=== PATIENT | female | born 1955 | race Caucasian/White ===

== ENCOUNTER 2018-11-17 01:16 | Emergency (ER) | payer BC ==
[2018-11-17] MEDS ORDERED: LIDOCAINE 1% INJ-PF (10 MG/ML) 30 ML SDV INJ ONE (03:11)
--- NOTE | 2018-11-17 03:53 | RADIOLOGY REPORT (SQ) ---
EXAM DESCRIPTION: CT CERVICAL SPINE WITHOUT IV CONTRAST, CT HEAD WITHOUT IV CONTRAST COMPLETED DATE/TME: 11/17/2018 03:11 CLINICAL HISTORY: 63 years, Female, fall, etoh COMPARISON: None Available. Technique: Contiguous axial images of the brain were obtained without the administration of intravenous contrast. Coronal and sagittal reformats obtained and reviewed. This exam was performed according to our departmental dose-optimization program which includes use of Automated Exposure Control, adjustment of the mA and/or kV according to patient size and/or use of iterative reconstruction technique. Findings: Brain: No hemorrhage. No territorial infarct. No mass effect. No herniation. Ventricles: Within normal limits for patient's age. Bones: No acute osseous abnormality. Paranasal sinuses: Unremarkable. Mastoid air cells: Unremarkable. Soft tissues: Soft tissue injury to the right parietal scalp. IMPRESSION: No acute intracranial abnormalities. EXAM DESCRIPTION: CT cervical spine without contrast CLINICAL HISTORY: 63 years Female fall, etoh COMPARISON: None TECHNIQUE: Multiplanar imaging through the cervical spine without contrast. This exam was performed according to our departmental dose-optimization program, which includes automated exposure control, adjustment of the mA and/or kV according to patient size and/or use of iterative reconstruction technique. FINDINGS: No fracture. No subluxation. Disc space narrowing and marginal osteophytes C4-C5, C5-C6 and C6-C7. Soft tissues are unremarkable. Visualized lung is clear. IMPRESSION: No acute abnormality. No fracture or subluxation.
--- NOTE | 2018-11-17 04:42 | ER Document Report ---
ED Fall - General Chief Complaint: Fall Injury Stated Complaint: FALL,HEAD INJURY Time Seen by Provider: 11/17/18 02:39 Notes: Patient is a 63-year-old female presents to the emergency department after a trip and fall. Patient states she had been partaking in alcoholic beverages this evening. States that is abnormal for her and she feels as though she tripped on the carpet. Patient's significant other is in the room agreeing with patient's story. Patient is denying any lightheadedness, dizziness, weakness prior to or after the fall. Patient states she does take hydroxyurea for elevated her platelet count. States she also takes daily baby aspirin. Patient's only complaint is a laceration to the right side of her head. She is denying any loss of consciousness which patient significant other agrees with. Denying any vomiting or headache. TRAVEL OUTSIDE OF THE [place] IN LAST 30 DAYS: No - Related data Allergies/Adverse Reactions: No Known Allergies Allergy (Unverified 11/17/18 01:20) Past Medical History - General Information source: Patient, Relative - Social History Smoking Status: Never Smoker Chew tobacco use (# tins/day): No Frequency of alcohol use: None Drug Abuse: None Family History: Reviewed & Not Pertinent Patient has suicidal ideation: No Patient has homicidal ideation: No Renal/ Medical History: Denies: Hx Peritoneal Dialysis Review of Systems - Review of Systems Constitutional: No symptoms reported EENT: See HPI Cardiovascular: No symptoms reported Respiratory: No symptoms reported Gastrointestinal: No symptoms reported Genitourinary: No symptoms reported Female Genitourinary: No symptoms reported Musculoskeletal: See HPI Skin: See HPI Hematologic/Lymphatic: See HPI Neurological/Psychological: See HPI Physical Exam - Vital signs Vitals: Temp Pulse Resp BP Pulse Ox 97.5 F 73 18 115/82 97 11/17/18 01:39 11/17/18 01:39 11/17/18 01:39 11/17/18 01:39 11/17/18 01:39 - Notes Notes: GENERAL: Alert, interacts well. No acute distress. HEAD: Normocephalic, 2 cm laceration noted right parietal region. EYES: Pupils equal, round, and reactive to light. Extraocular movements intact. ENT: Oral mucosa moist, tongue midline. Nares patent, no nasal septal hematoma, TM's intact, no hemotympanum noted bilaterally. NECK: Full range of motion. Supple. Trachea midline. LUNGS: Clear to auscultation bilaterally, no wheezes, rales, or rhonchi. No respiratory distress. HEART: Regular rate and rhythm. No murmur ABDOMEN: Soft, non-tender. Non-distended. Bowel sounds present in all 4 quadrants. EXTREMITIES: Moves all 4 extremities spontaneously. No edema, normal radial and dorsalis pedis pulses bilaterally. No cyanosis. BACK: no cervical, thoracic, lumbar midline tenderness. No saddle anesthesia, normal distal neurovascular exam. NEUROLOGICAL: Alert and oriented x3. Normal speech. cranial nerves II through XII grossly intact. PSYCH: Normal affect, normal mood. SKIN: Warm, dry, normal turgor. No rashes or lesions noted. Course - Re-evaluation Re-evalutation: 11/17/18 04:40 Due to patient admitting her partaking in alcoholic beverages this evening CT head and neck were ordered. Both head and neck CT showed no signs of intracra nial bleeding or fractures. Patient's laceration was repaired, see procedure note for details. Patient tolerated well. Patient stable for discharge. - Vital Signs Vital signs: Temp Pulse Resp BP Pulse Ox 97.5 F 73 18 115/82 97 11/17/18 01:39 11/17/18 01:39 11/17/18 01:39 11/17/18 01:39 11/17/18 01:39 Procedures - Laceration/Wound Repair Scalp Wound length (cm): 2 Wound's Depth, Shape: Superficial Laceration pre-procedure: Sterile PPE donned, Betadine prep applied, Sterile drapes applied, Shur-Clens applied Anesthetic type: 1% Lidocaine Volume Anesthetic (mLs): 5 Wound explored: Clean Irrigated w/ Saline (mLs): 300 Wound Debrided: Minimal Wound Repaired With: Sutures Suture Size/Type: Vicryl, 4:0 Number of Sutures: 5 Post-procedure wound care: Sterile dressing applied Post-procedure NV exam normal: Yes Adult Head Front/Back picture: 1 - Laceration Discharge - Discharge Clinical Impression: Head injury Qualifiers: Encounter type: initial encounter Qualified Code(s): S09.90XA - Unspecified injury of head, initial encounter Scalp laceration Qualifiers: Encounter type: initial encounter Qualified Code(s): S01.01XA - Laceration without foreign body of scalp, initial encounter Condition: Stable Disposition: HOME, SELF-CARE Instructions: Laceration Care (OM), Tetanus Immunization Given (OM), Soap Cleansing (COUNT INCLUDES THE [facility]) Additional Instructions: As we discussed you have been seen and treated in the emergency department after a minor head injury and sustaining laceration to your scalp. Your laceration was repaired with absorbable sutures. This is they will absorb in the next 7-10 days. The next 24 hours do not get your laceration wet. After that you can clean it like normal just do not submerge it. Please also be careful brushing her hair. Please make sure you follow-up with your primary care provider in the next 24-48 hours and return to the emergency room for any other concerning symptoms.
[2018-11-17] MEDS ORDERED: DIPH/PERTUSS(ACELL)/TETANUS VAC/PF 0.5 ML SYR (>=10YO) IM ONE (04:43)
[2018-11-17 05:04] VITALS: BP 108/73
== END 2018-11-17 04:59 | disposition home or self-care (01) ==
LOC: ER 01:16
DX: S01.01XA Laceration without foreign body of scalp, initial encounter (principal); W19.XXXA Unspecified fall, initial encounter; R79.89 Other specified abnormal findings of blood chemistry; Z79.899 Other long term (current) drug therapy; Z79.82 Long term (current) use of aspirin
CPT/HCPCS: 99283; 90471; 70450; 72125; 90715; 12001; J3490